=== PATIENT | male | born 1935 | race Two or more races ===

== ENCOUNTER 2018-06-23 22:44 | Emergency (ER) | payer MEDICARE ==
[~2018-06-23] VITALS: Ht 172.7 cm; Wt 59.9 kg
[2018-06-23 23:15] VITALS: BP 138/101
[2018-06-24 02:38] LABS: Basophils # (auto) 0.1 uL; Basophils % (auto) 0.7 % (0.0-2.0); Eosinophils # (auto) 0.1 uL; Eosinophils % (auto) 1.3 % (0.0-7.0); Hematocrit 37.4 % (41.0-53.0); Hemoglobin 12.2 g/dL (13.5-17.5); Lymphocytes # (auto) 1.4 uL; Lymphocytes % (auto) 15.8 % (10.0-50.0); Mean Corpuscular Hemoglobin 33.1 pg (28.0-32.0); Mean Corpuscular Hgb Conc. 32.6 g/dL (32.0-36.0); Mean Corpuscular Volume 101.7 fL (80.0-100.0); Monocytes % (auto) 11.4 % (0.0-12.0); Neutrophils # (auto) 6.3 uL; Neutrophils % (auto) 70.8 % (37.0-80.0); Platelet Count (auto) 423 10^3/uL (140-450); Red Blood Cells 3.68 10^6/uL (4.5-5.90); Red Cell Distribution Width 15.5 % (11.8-14.3); White Blood Cell 8.9 10^3/uL (4.4-10.8)
== END 2018-06-24 05:41 | disposition home or self-care (01) ==
LOC: ER 22:50
DX: S60.222A Contusion of left hand, initial encounter (principal); M10.9 Gout, unspecified; X58.XXXA Exposure to other specified factors, initial encounter; Y93.89 Activity, other specified; Y99.8 Other external cause status; Y92.89 Other specified places as the place of occurrence of the external cause
CPT/HCPCS: 36415; 73130; 85025